=== PATIENT | male | born 1960 | race Hispanic/Latino ===

== ENCOUNTER 2017-07-03 00:33 | Emergency (ER) | payer MEDICAID ==
[2017-07-03 00:34] VITALS: BMI 27.7
[2017-07-03 01:06] VITALS: BP 131/84; PULSE 88; RESP 18; TEMP 98.3; O2SAT 99
--- NOTE | 2017-07-03 03:12 | ED PDOC ---
Arrival/HPI - General Chief Complaint: Hip Pain Time Seen by Provider: 07/03/17 02:14 - History of Present Illness Narrative History of Present Illness (Text): 07/03/17 03:03 57 yo un-domiciled male with extensive PMHx CAD s/p 4 stents, NH x2, CHF, HTN, LEROY, HLD, COPD, alcohol abuse presented to [facility] ED with c/o worsening right sided lower back pain (01/22) that radiates down the posterior leg since yesterday. Pt reports he has hx sciatica for 2 yrs and has been taking gabapentin since 2016. Pt reports numbness and tingling down the right leg. Denies any trauma or injury to body. Pt reports he drank few cans of beer 3 days ago. Denies bowel or bladder dysfunction. Denies fever, chills, nausea, vomiting, chest pain or dyspnea. Pt reports he has not been taking all of his medications due to not having insurance/money. Denies taking any NSAIDS for pain. PMD: Dr. Edgar ( last vist 03/2017 as per pt) 07/03/17 03:12 Past Medical History - Infectious Disease Hx of Infectious Diseases: None - Cardiac Hx Congestive Heart Failure: Yes Hx Hypertension: Yes - Pulmonary Hx Chronic Obstructive Pulmonary Disease (COPD): Yes - Neurological Hx Seizures: No - HEENT Hx HEENT Disorder: No (wears glasses) - Renal Hx Renal Disorder: No - Endocrine/Metabolic Hx Endocrine Disorders: No - Hematological/Oncological Hx Blood Disorders: No - Integumentary Hx Dermatological Disorder: No - Musculoskeletal/Rheumatological Hx Falls: No - Gastrointestinal Hx Gastrointestinal Disorders: No - Genitourinary/Gynecological Hx Sexually Transmitted Diseases: No - Psychiatric Hx Substance Use: Yes (A MONTH AGO MARIJUANA/COCAINE) - Surgical History Hx Coronary Stent: Yes (x4 on 03/25/2016) - Anesthesia Hx Anesthesia: Yes Hx Anesthesia Reactions: No Hx Malignant Hyperthermia: No - Suicidal Assessment Feels Threatened In Home Enviroment: No Family/Social History Family/Social History: No Known Family HX Smoking Status: Former Smoker Hx Alcohol Use: Yes Hx Substance Use: Yes (A MONTH AGO MARIJUANA/COCAINE) Substance used: SMOKES MARIJUANA SEVERAL TIMES A WEEK Allergies/Home Meds Allergies/Adverse Reactions: Allergies No Known Allergies Allergy (Verified 07/03/17 01:03) Review of Systems - Review of Systems Constitutional: absent: Fatigue, Fevers Respiratory: absent: SOB, Cough Cardiovascular: absent: Chest Pain, Palpitations Gastrointestinal: absent: Abdominal Pain, Nausea, Vomiting Genitourinary Male: absent: Dysuria, Frequency Skin: absent: Rash Neurological: absent: Headache, Dizziness Physical Exam Vital Signs Temp Pulse Resp BP Pulse Ox 07/03/17 01:03 98.3 F 88 18 131/84 99 Appearance: Positive for: Comfortable. No: Non-Toxic - Systems Exam Head: Present: Atraumatic, Normocephalic Mouth: Present: Moist Mucous Membranes Pharnyx: Present: Normal Neck: Present: Normal Range of Motion Respiratory/Chest: Present: Clear to Auscultation. No: Wheezes, Rhonchi Cardiovascular: Present: Regular Rate and Rhythm, Normal S1, S2 Abdomen: Present: Normal Bowel Sounds. No: Tenderness Back: Present: Normal Inspection, Other (Mild hip pain with internal rotation of right hip. Has full ROM and NVI of righ hip and lower leg.). No: Midline Tenderness Lower Extremity: Present: Normal Inspection, NORMAL PULSES. No: CALF TENDERNESS Neurological: Present: Speech Normal, Motor Func Grossly Intact, Normal Sensory Function Psychiatric: Present: Alert, Oriented x 3 Medical Decision Making ED Course and Treatment: 07/03/17 03:19 Assessment: 57 yo male with extensive pmhx presents to ED w/ c/o acute on chronic right sided lower back pain that radiates to posterior leg x 1 day associated with numbness and tingling of right lower leg. Plan: Gabapentin 300 mg po Ibuprofen 600 mg po Pt looks clinically stable and ambulated to ED w/o limping. Case d/w ED attending Dr. Newton 07/03/17 06:00 Re-evaluation: Pt reports his back has improved and was able to sleep well without pain. Pt is medically stable to discharge today. Pt is given naproxen 500 mg PO bid. Pt was advised to f/u with PMD in 2-3 days. ED precaution given for worsening symptoms. Pt is in agreement with the plan. Case d/w ED attending Dr. Newton - Medication Orders Current Medication Orders: Discontinued Medications Gabapentin (Neurontin) 300 mg PO STAT STA Stop: 07/03/17 02:56 Last Admin: 07/03/17 03:37 Dose: 300 mg Ibuprofen (Motrin Tab) 600 mg PO STAT STA Stop: 07/03/17 02:56 Last Admin: 07/03/17 03:37 Dose: 600 mg MAR Pain Assessment Document 07/03/17 03:37 DSK (Rec: 07/03/17 03:37 DSK [id number]) Pain Reassessment Is this a pain reassessment? Yes Sleep Is patient sleeping during reassessment? Yes Re-Assess: MAR Pain Reassessment Document 07/03/17 04:37 DSK (Rec: 07/03/17 05:32 DSK [id number]) Sleep Is patient sleeping during reassessment? Yes Disposition/Present on Arrival - Present on Arrival Any Indicators Present on Arrival: No History of DVT/PE: No History of Uncontrolled Diabetes: No Urinary Catheter: No History Surgical Site Infection Following: None - Disposition Have Diagnosis and Disposition been Completed?: Yes Diagnosis: Sciatica Disposition Time: 06:10 Condition: IMPROVED Discharge Instructions (ExitCare): Sciatica, Sciatica Exercises Prescriptions: Naproxen [Naprosyn] 500 mg PO Q12 PRN #14 tab PRN Reason: back pain Referrals: Yoana Hyde MD [Primary Care Provider] - Forms: [employer] (Kinyarwanda)
== END 2017-07-03 05:35 | disposition home or self-care (01) ==
LOC: H.ER 00:33
DX: M54.31 Sciatica, right side (principal)